=== PATIENT | female | born 1985 | race Caucasian/White ===

== ENCOUNTER 2017-08-18 12:03 | Outpatient (CLI) | payer OTHER ==
--- NOTE | 2017-08-18 12:37 | RAD ---
FOUR VIEWS OF THE LEFT KNEE: COMPARISON: None. HISTORY: Twisted left knee 5 weeks ago with left knee pain. FINDINGS: Four views left knee show no evidence of acute fracture or dislocation. No degenerative changes are seen. No knee effusion is present. IMPRESSION: Unremarkable exam. POS: [facility]
== END 2017-08-18 12:04 | disposition home or self-care (01) ==
LOC: MADRAD 12:03
PROVIDERS: ATTEND Family Medicine
DX: M25.562 Pain in left knee (principal)

== ENCOUNTER 2018-03-23 18:04 | Emergency (ER) | payer BC, OTHER, SELFPAY ==
[2018-03-23] MEDS ORDERED: Lorazepam 2 MG/ML VIAL ONE (18:23)
[2018-03-23 21:40] LABS: #Basophils 0.1 thou/uL (0.0-0.2); #Eosinphils 0.1 thou/uL (0.0-0.7); #Lymphocytes 3.2 thou/uL (1.20-3.40); #Monocytes 0.8 thou/uL (0.11-0.59); #Neutrophils 7.6 thou/uL (1.40-6.50); %Basophils 1.2 % (0.0-1.0); %Eosinophils 0.9 % (0.0-10.0); %Monocytes 6.7 % (0.0-10.0); %Neutrophils 64.3 % (42.0-75.0); Hemoglobin 13.8 g/dL (12.0-16.0); Mean Corpuscular HGB CONC 32.4 g/dL (32.0-36.0); Mean Corpuscular Hemoglobin 29.2 pg (27.0-31.0); Mean Corpuscular Volume 90.2 fL (78.0-98.0); Mean Platelet Volume 6.9 fL (7.4-10.4); Platelet Count 291 thou/uL (130-400); RBC Distribution Width 11.5 % (11.5-14.5); White Blood Cell (WBC) Count 11.8 thou/uL (4.8-10.8)
[2018-03-23 21:52] LABS: Anion Gap 16 mmol/L (10-20); BUN (Urea Nitrogen) 10 mg/dL (7.0-18.7); Calc. Creatinine Clearance 0 mL/min (70-130); Calcium 9.3 mg/dL (7.8-10.44); Carbon Dioxide 25 mmol/L (22-29); Chloride 106 mmol/L (98-107); Estimated GFR-MDRD 81; Glucose 91 mg/dL (70-105); Potassium 3.7 mmol/L (3.5-5.1); Sodium 143 mmol/L (136-145)
[2018-03-23 22:00] LABS: CKMB 0.8 ng/mL (0-6.6); Troponin I Less than 0.010 ng/mL (< 0.028)
== END 2018-03-23 22:34 | disposition home or self-care (01) ==
LOC: MADERS 18:04
DX: F41.9 Anxiety disorder, unspecified (principal); F17.210 Nicotine dependence, cigarettes, uncomplicated; Z79.899 Other long term (current) drug therapy
CPT/HCPCS: 36415; 80048; 82553; 84484; 85025; 96372; J2060

== ENCOUNTER 2022-12-17 09:42 | Emergency (ER) | payer BC, SELFPAY ==
[2022-12-17] MEDS ORDERED: Ondansetron ODT 4 MG TAB ONE (10:18)
[2022-12-17] MEDS ORDERED: Ketorolac Tromethamine 60 MG/2 ML VIAL ONE (10:26)
== END 2022-12-17 10:54 | disposition home or self-care (01) ==
LOC: MADERS 09:42
DX: S60.041A Contusion of right ring finger without damage to nail, initial encounter (principal); S60.051A Contusion of right little finger without damage to nail, initial encounter; F17.200 Nicotine dependence, unspecified, uncomplicated; W23.0XXA Caught, crushed, jammed, or pinched between moving objects, initial encounter
CPT/HCPCS: 96372; 99283; J1885; Q0162

== ENCOUNTER 2025-04-15 12:48 | Outpatient (CLI) | payer BC ==
[2025-04-15 13:02] LABS: #Basophils 0.1 thou/uL (0.0-0.2); #Eosinophils 0.1 thou/uL (0.0-0.7); #Lymphocytes 2.3 thou/uL (1.20-3.40); #Monocytes 0.6 thou/uL (0.11-0.59); #Neutrophils 5.6 thou/uL (1.40-6.50); %Basophils 1.3 % (0.0-1.0); %Eosinophils 1.3 % (0.0-10.0); %Lymphocytes 26.1 % (21.0-51.0); %Monocytes 6.8 % (0.0-10.0); %Neutrophils 64.5 % (42.0-75.0); Hematocrit 42.3 % (36.0-47.0); Hemoglobin 13.1 g/dL (12.0-16.0); Mean Corpuscular Hemoglobin 28.3 pg (27.0-31.0); Mean Corpuscular Volume 91.5 fl (78.0-98.0); Platelet Count 342 10x3/uL (130-400); Red Blood Cell (RBC) Count 4.62 mill/uL (4.20-5.40); White Blood Cell (WBC) Count 8.6 10x3/uL (4.8-10.8)
[2025-04-15 13:17] LABS: ALT (SGPT) 23 U/L (Less than 34); AST (SGOT) 19 U/L (11-34); Albumin 4.0 g/dL (3.1-4.5); Alkaline Phosphatase 80 U/L (40-110); Anion Gap 15 mmol/L (10-20); BUN (Urea Nitrogen) 12 mg/dL (7.0-18.7); Bilirubin, Total 0.3 mg/dL (0.3-1.2); Calc. Creatinine Clearance 0 mL/min (70-130); Calcium 9.2 mg/dL (7.8-10.44); Carbon Dioxide 25 mmol/L (22-29); Chloride 103 mmol/L (98-107); Globulin 3.1 g/dL (2.4-3.5); Glucose 93 mg/dL (70-105); Potassium 4.3 mmol/L (3.5-5.1); Sodium 139 mmol/L (136-145)
== END 2025-04-15 12:49 | disposition home or self-care (01) ==
LOC: MADLAB 12:48
PROVIDERS: ATTEND Physician Assistant Medical
DX: I42.8 Other cardiomyopathies (principal)
CPT/HCPCS: 36415; 80053; 83880; 85025

== ENCOUNTER 2025-04-16 09:58 | Emergency (ER) | payer BC ==
[2025-04-16] MEDS ORDERED: Nitroglycerin 0.4 MG TAB 1 EACH ONE (10:15)
[2025-04-16] MEDS ORDERED: Aspirin Chewable 81 MG TAB ONE (10:16)
[2025-04-16] MEDS ORDERED: Ondansetron PF 4 MG/2 ML Vial ONE (10:16)
[2025-04-16 10:48] LABS: ALT (SGPT) 26 U/L (Less than 34); AST (SGOT) 30 U/L (11-34); Albumin 4.3 g/dL (3.1-4.5); Alkaline Phosphatase 95 U/L (40-110); Anion Gap 19 mmol/L (10-20); BUN (Urea Nitrogen) 13 mg/dL (7.0-18.7); Bilirubin, Total 0.4 mg/dL (0.3-1.2); Calc. Creatinine Clearance 0 mL/min (70-130); Calcium 9.8 mg/dL (7.8-10.44); Carbon Dioxide 21 mmol/L (22-29); Chloride 103 mmol/L (98-107); Globulin 3.6 g/dL (2.4-3.5); Glucose 85 mg/dL (70-105); Potassium 4.4 mmol/L (3.5-5.1); Sodium 139 mmol/L (136-145)
[2025-04-16 10:50] LABS: Hematocrit 43.5 % (36.0-47.0); Hemoglobin 13.6 g/dL (12.0-16.0); MDiff Complete? YES; Mean Corpuscular Hemoglobin 28.2 pg (27.0-31.0); Mean Corpuscular Volume 89.9 fl (78.0-98.0); Platelet Adequacy Comment Appears Adequate; Platelet Count 378 10x3/uL (130-400); Red Blood Cell (RBC) Count 4.84 mill/uL (4.20-5.40); White Blood Cell (WBC) Count 8.9 10x3/uL (4.8-10.8)
[2025-04-16 10:57] LABS: Troponin I Less than 0.010 ng/mL (< 0.028)
[2025-04-16 14:08] LABS: Troponin I Less than 0.010 ng/mL (< 0.028)
== END 2025-04-16 14:17 | disposition home or self-care (01) ==
LOC: MADERS 09:58
DX: R07.2 Precordial pain (principal)
CPT/HCPCS: 71045; 80053; 83880; 84484; 85025; 93005; 94760; 96374; J2405